=== PATIENT | male | born 1950 | race Caucasian/White ===

== ENCOUNTER 2021-07-31 09:09 | Emergency (ER) | payer OTHER ==
[~2021-07-31] VITALS: Ht 170.2 cm; Wt 63.0 kg
--- NOTE | 2021-07-31 09:15 | NUR ---
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
[2021-07-31 09:36] LABS: HEMATOCRIT 46.1 % (36.7-47.1); MEAN CORPUSCULAR HEMOGLOBIN 29.6 uug (23.8-33.4); MEAN CORPUSCULAR VOLUME 85.7 fL (73.0-96.2); PLATELET COUNT (AUTO) 255 K/uL (152-348)
[2021-07-31 09:41] LABS: CREATININE 0.9 mg/dL (0.6-1.3); POTASSIUM 4.1 mmol/L (3.5-5.1)
[2021-07-31 09:57] LABS: BILIRUBIN,TOTAL 1.6 mg/dL (0.2-1.0)
[2021-07-31 09:59] LABS: THYROID STIMULATING HORMONE 1.942 mIU/mL (0.358-3.740)
[2021-07-31 10:17] VITALS: BP 119/81
--- NOTE | 2021-07-31 10:17 | NUR ---
Patient discharged to home in stable condition. Written and verbal after care instructions given. Patient verbalizes understanding of instructions. Stressed follow up or return to ER for worsening s/s.
== END 2021-07-31 10:26 | disposition home or self-care (01) ==
LOC: ER 09:09
DX: R00.2 Palpitations (principal); R06.02 Shortness of breath; R00.0 Tachycardia, unspecified
CPT/HCPCS: 36415; 70030-TC; 71045; 84443; 85025; 93005; A4663